=== PATIENT | female | born 1955 | race Two or more races ===

== ENCOUNTER 2017-10-20 07:28 | Day surgery (SDC) | payer OTHER ==
[~2017-10-20] VITALS: Ht 165.1 cm; Wt 84.8 kg
[~2017-10-20 07:28] MED LIST: ALAVERT10 M1 PO; ASPIRIN81 M2 PO; ATIVAN2 MG PO; CELEXA40 MG PO; COQ-10100 MG PO; ESSENTIAL WOMA1 EAC1 PO; PRILOSEC20 MG PO; PRINIVIL5 MG PO; SEROQUEL XR200 MG PO; TYLENOL EXTRA500 MG PO
[2017-10-20 12:25] VITALS: BP 121/68
[2017-10-20 12:57] VITALS: BP 140/78
== END 2017-10-20 13:05 | disposition home or self-care (01) ==
LOC: SDC 07:28
DX: H35.342 Macular cyst, hole, or pseudohole, left eye (principal); H35.372 Puckering of macula, left eye; I10 Essential (primary) hypertension; K21.9 Gastro-esophageal reflux disease without esophagitis; Z79.82 Long term (current) use of aspirin
CPT/HCPCS: J0690; J0713; J3300; J3301